=== PATIENT | female | born 1995 ===

== ENCOUNTER 2017-09-10 21:36 | Emergency (ER) | payer MEDICAID ==
[~2017-09-10] VITALS: Ht 162.6 cm; Wt 110.2 kg
[2017-09-10 21:37] VITALS: BP 123/88
== END 2017-09-10 22:09 | disposition home or self-care (01) ==
LOC: ED 21:45
DX: S46.312A Strain of muscle, fascia and tendon of triceps, left arm, initial encounter (principal); X58.XXXA Exposure to other specified factors, initial encounter; Y93.89 Activity, other specified; Y92.89 Other specified places as the place of occurrence of the external cause; Y99.8 Other external cause status
CPT/HCPCS: 99283

== ENCOUNTER 2019-09-11 18:23 | Emergency (ER) | payer MEDICAID ==
[~2019-09-11] VITALS: Ht 162.6 cm; Wt 104.5 kg
[2019-09-11 19:38] LABS: BASOPHILS # (AUTO) 0.04 x10^3/uL (0-0.1); BASOPHILS % (AUTO) 0 % (0-1); EOSINOPHILS # (AUTO) 0.12 x10^3/uL (0-0.4); EOSINOPHILS % (AUTO) 1 % (1-7); LYMPHOCYTES # (AUTO) 2.16 x10^3/uL (1-3.4); LYMPHOCYTES % (AUTO) 21 % (22-44); MD NO; MEAN CORPUSCULAR HEMOGLOBIN 29.3 pg (27.0-34.8); MEAN CORPUSCULAR HGB CONC 33.4 g/dL (32.4-35.8); MEAN CORPUSCULAR VOLUME 87.7 fL (80-100); MEAN PLATELET VOLUME 8.4 fL (7.4-10.4); MONOCYTES # (AUTO) 0.77 x10^3/uL (0.2-0.8); MONOCYTES % (AUTO) 7 % (2-9); NEUTROPHILS # (AUTO) 7.44 x10^3/uL (1.8-6.8); NEUTROPHILS % (AUTO) 71 % (42-75); PLATELET COUNT 302 x10^3/uL (130-400); RED BLOOD COUNT 4.42 x10^6/uL (3.82-5.3); RED CELL DISTRIBUTION WIDTH 13.4 % (9.6-15.2)
[2019-09-11 19:47] LABS: ALBUMIN 3.2 g/dL (3.4-5.0); ANION GAP 7 mmol/L (5-15); CALCIUM 8.6 mg/dL (8.5-10.1); CHLORIDE 110 mmol/L (98-107); CREATININE 0.85 mg/dL (0.55-1.02)
--- NOTE | 2019-09-11 20:01 | NUR ---
PT CAME CO OF INTENSE ABD CRAMPING AND VAG BLEEDING. PT STATES SHE TOOK "THE PILLS" YESTERDAY AND TODAY HAS BEEN HAVING BAD CRAMPS AND BLEEDING. PT HAS BEEN UNABLE TO PROVIDE URINE SAMPLE DUE TO BLOOD THAT IS COMING FROM VAGINA. PT IS BEING TAKEN TO US AT THIS TIME
[2019-09-11 20:25] VITALS: BP 111/69
--- NOTE | 2019-09-11 20:25 | NUR ---
PT RESTING IN [facility], [place]. WATCHING TV. VSS. NAD.
== END 2019-09-11 20:49 | disposition home or self-care (01) ==
LOC: ED 20:15
DX: O03.9 Complete or unspecified spontaneous abortion without complication (principal); O46.91 Antepartum hemorrhage, unspecified, first trimester; Z3A.01 Less than 8 weeks gestation of pregnancy
CPT/HCPCS: 36415; 76856; 80048; 82040; 84702; 85025; 86901; 99284